=== PATIENT | male | born 1985 | race Caucasian/White ===

== ENCOUNTER 2019-04-28 08:17 | Outpatient (CLI) | payer BC | END 2019-04-28 08:18 | disposition home or self-care (01) | LOC: CTENTCT 08:17 | PROVIDERS: ATTEND Specialist | DX: J34.89 Other specified disorders of nose and nasal sinuses (principal) | CPT/HCPCS: 70486 ==

== ENCOUNTER 2021-04-11 09:45 | Emergency (ER) | payer BC ==
[2021-04-11] MEDS ORDERED: Lidocaine 1% (PF) 30 ML VIAL ONE (12:42)
[2021-04-11] MEDS ORDERED: Bupivacaine 0.5% 10 ML VIAL ONE (12:42)
[2021-04-11] MEDS ORDERED: Bacitracin 1 PK ONE (14:13)
[2021-04-11] MEDS ORDERED: Boostrix 0.5 ML (Tdap) VIAL ONE (14:19)
== END 2021-04-11 14:27 | disposition home or self-care (01) ==
LOC: ERS 09:45
DX: S61.211A Laceration without foreign body of left index finger without damage to nail, initial encounter (principal); S61.213A Laceration without foreign body of left middle finger without damage to nail, initial encounter; W45.8XXA Other foreign body or object entering through skin, initial encounter
CPT/HCPCS: 12002; 90471; 90715; J2001; J3490